=== PATIENT | male | born 1950 ===

== ENCOUNTER 2017-07-31 10:37 | Day surgery (SDC) | payer OTHER ==
[2017-07-27 08:31] VITALS: BMI 25.7
[2017-07-31] MEDS ORDERED: ceFAZolin IV 2 gm in Dextrose 1 GM/50 ML BAG IVPB ONE (14:28)
[2017-07-31] MEDS ORDERED: Lidocaine 1% Inj (20ml) ONE (14:28)
[2017-07-31] MEDS ORDERED: Bupivacaine-Epi 0.25%-1:200,000 PF Inj ONE (14:28)
[2017-07-31] MEDS ORDERED: Lactated Ringer's 1,000 ML IV ONE (14:37)
[2017-07-31] MEDS ORDERED: Midazolam 2 MG/2 ML VIAL ONE (14:42)
[2017-07-31] MEDS ORDERED: Propofol 10 mg/ml Inj (20 ML) ONE (14:42)
[2017-07-31] MEDS ORDERED: Oxycodone/Acetaminophen 5/325 mg Tab PO PRN (16:18)
[2017-07-31] MEDS ORDERED: HYDROmorphone 0.5 mg/0.5 ml ISec IVP PRN (16:21)
--- NOTE | 2017-07-31 16:21 | PCM.SURG1 ---
Surgeon's Initial Post Op Note - Surgeon's Notes Surgeon: Dr. jon Inpatient Care Manager Rn: lorena butler PGY2 Type of Anesthesia: General LMA Pre-Operative Diagnosis: Back cyst Operative Findings: back sebaceous cyst [id number] Post-Operative Diagnosis: Same Operation Performed: excision of back cyst Specimen/Specimens Removed: sebaceous cyst [id number] Estimated Blood Loss: EBL {In ML}: 50 Blood Products Given: N/A Drains Used: No Drains Post-Op Condition: Good Date of Surgery/Procedure: 07/31/17 Time of Surgery/Procedure: 16:21
[2017-07-31 16:50] VITALS: O2SAT 100
[2017-07-31] MEDS ORDERED: Lactated Ringer's 500 ML IV ONE (16:56)
[2017-07-31 17:41] VITALS: BP 136/67; PULSE 73; RESP 18; TEMP 98
--- NOTE | 2017-07-31 20:30 | OP ---
PROCEDURE DATE: 07/31/2017 PREOPERATIVE DIAGNOSIS: Infected sebaceous cyst of the left upper back, approximately 6 x 6 cm size. POSTOPERATIVE DIAGNOSIS: Infected sebaceous cyst of the left upper back, approximately 6 x 6 cm size. PROCEDURES DONE: 1. Excision of large, infected sebaceous cyst of the left upper back. 2. Excision of the redundant, infected skin. 3. Layered closure of the wound, approximately 6 x 4 cm size. TYPE OF ANESTHESIA: General endotracheal tube anesthesia. ESTIMATED BLOOD LOSS: Around 50 mL. DRAIN: None. PATHOLOGY: 1. Sebaceous cyst was sent for the pathology. 2. The cyst material was sent for the culture and sensitivity. COMPLICATIONS: None. INTRAOPERATIVE FINDINGS: The patient had large, infected left upper back sebaceous cyst of approximately 6 x 4 cm size and the patient had infected, redundant skin after removal of the sebaceous cyst that was excised and there was infected material in the cyst that was sent for the culture and sensitivity. DESCRIPTION OF PROCEDURE: On intraoperative steps, this is a 67-year-old male who was diagnosed with infected, large sebaceous cyst of the left upper back and the patient was consented, brought to the OR and placed on the operating table. After induction of the anesthesia, the left upper back was prepped and draped in the usual sterile fashion and transverse 6-cm incision was made. After incising skin and subcutaneous tissue, the upper and lower flap was created. The patient already had multiple openings and the cyst content was partially drained and the dissection was carried down superiorly up to the underlying muscles and fascia inferiorly, medially and laterally and the sebaceous cyst was completely excised and hemostasis was achieved and now, redundant skin on the both sides, approximately 6 x 2 cm size on the skin was excised and sent off the table for the pathology. The wound was irrigated and after proper hemostasis, the wound was closed in multiple layers, the upper flap with underlying fascia, another layer of the subQ sutured with underlying fascia, the subQ with 2-0 Vicryl, skin with 4-0 Monocryl and another layer of the skin with 4-0 nylon and a dry sterile dressing was applied. The patient tolerated the procedure well. Count of instrument was correct. There was no apparent complication. The patient was extubated in OR, sent to the postanesthesia care unit in stable condition. Moisés Oconnell MD [facility] # [id number]
== END 2017-07-31 18:05 | disposition home or self-care (01) ==
LOC: C.SDS 10:37
PROVIDERS: ATTEND Surgery Surgical Critical Care
DX: L72.3 Sebaceous cyst (principal); E11.9 Type 2 diabetes mellitus without complications; Z79.82 Long term (current) use of aspirin
CPT/HCPCS: 13101; 21933; 82948; 87070; 88305; J0690; J1170; J2250; J2704; J3010; J7120